=== PATIENT | male | born 1965 ===

== ENCOUNTER → 2018-08-06 | Outpatient (CLI) | payer OTHER ==
[~2018-08-06] MED LIST: BLOO-1318 MC; BLOO-960 MC; LANC-165 TOP; LISI-353 PO; SITA1TBM4 PO
[2018-08-06 14:01] LABS: PLATELET COUNT, AUTOMATED 258 K/uL (150-450)
--- NOTE | 2018-08-06 14:31 | EKG ---
FACILITY: [facility] - [place] PATIENT NAME: ANTONELLA LIPSCOMB : [id number] MR: [id number]: [id number] EXAM DATE: ORDERING PHYSICIAN: DEV WASHINGTON TECHNOLOGIST: Test Reason : HYPERTENSION Blood Pressure : / mmHG Vent. Rate : 076 BPM Atrial Rate : 076 BPM P-R Int : 116 ms QRS Dur : 090 ms QT Int : 406 ms P-R-T Axes : 047 075 088 degrees QTc Int : 456 ms Normal sinus rhythm Nonspecific T wave abnormality Abnormal ECG No previous ECGs available Confirmed by DEV WASHINGTON ([id number]) on 08/06/2018 4:27:05 PM Referred By: Confirmed By:DEV WASHINGTON
== END ==
LOC: LAB 13:30
PROVIDERS: ATTEND Internal Medicine
DX: E11.9 Type 2 diabetes mellitus without complications (principal); I10 Essential (primary) hypertension
CPT/HCPCS: 36415; 81001; 82040; 82043; 82247; 82310; 82374; 82435; 82465; 82565; 82947; 83036; 83718; 84075; 84132; 84153; 84155; 84295; 84443; 84450; 84460; 84478; 84520; 85025